=== PATIENT | female | born 1995 | race Two or more races ===

== ENCOUNTER 2021-01-25 19:15 | Emergency (ER) | payer MEDICAID ==
[~2021-01-25] VITALS: Ht 162.6 cm; Wt 72.6 kg
[2021-01-25 19:38] LABS: Urine Bacteria FEW /hpf (None Seen); Urine Blood 3+ /uL (Negative); Urine Mucus FEW (None Seen); Urine Specific Gravity 1.011 (1.001-1.035); Urine WBC 52 /hpf (0 - 5)
[2021-01-25 22:00] VITALS: BP 135/78
== END 2021-01-25 23:04 | disposition home or self-care (01) ==
LOC: ER 19:15
DX: O20.0 Threatened abortion (principal); O23.41 Unspecified infection of urinary tract in pregnancy, first trimester; Z3A.01 Less than 8 weeks gestation of pregnancy
CPT/HCPCS: 36415; 76801; 76817; 81001; 84702